=== PATIENT | female | born 1945 | race Caucasian/White ===

== ENCOUNTER 2021-01-02 00:46 | Inpatient (IN) | payer OTHER ==
[2021-01-02] MEDS ORDERED: ASPIRIN 81 MG CHEWABLE TABLETS PO ONE ×3 (00:55→04:16)
[2021-01-02] MEDS ORDERED: NITROGLYCERIN SUBLINGUAL 1/150 0.4 MG TAB ONE (00:58)
[2021-01-02] MEDS ORDERED: ASPIRIN 81 MG CHEWABLE TABLETS ONE (00:58)
[2021-01-02] MEDS ORDERED: NITROGLYCERIN SUBLINGUAL 1/150 0.4 MG TAB SL ONE (01:08)
[2021-01-02 01:45] LABS: BASO % 0.9 % (0-2.0); EOS % 0.9 % (0-4.5); HEMATOCRIT 37.2 % (32.4-45.2); HEMOGLOBIN 12.7 GM/dL (10.7-15.3); LYMPH % 26.6 % (8-40); MCH 29.2 pg (25.7-33.7); MCHC 34.3 g/dl (32.0-36.0); MEAN CELL VOLUME 85.1 fl (80-96); MEAN PLT VOLUME 8.3 fl (7.5-11.1); MONO % 8.5 % (3.8-10.2); NEUT % 63.1 % (42.8-82.8); PLATELET COUNT 202 K/MM3 (134-434); RBC 4.37 M/mm3 (3.60-5.2); RDW 13.9 % (11.6-15.6); URINE APPEARANCE CLEAR; URINE BILIRUBIN NEGATIVE (NEGATIVE); URINE COLOR YELLOW; URINE GLUCOSE (UA) NEGATIVE (NEGATIVE); URINE KETONE NEGATIVE (NEGATIVE); URINE LEUK ESTERASE NEGATIVE (NEGATIVE); URINE NITRITE NEGATIVE (NEGATIVE); URINE PROTEIN NEGATIVE (NEGATIVE); URINE UROBILINOGEN 0.2 mg/dL (0.2-1.0); WHITE BLOOD COUNT 5.2 K/mm3 (4.0-10.0)
[2021-01-02] MEDS ORDERED: ONDANSETRON 4 MG/2 ML VIAL IVPUSH ONE (01:53)
[2021-01-02 01:54] LABS: INR 0.95 (0.83-1.09); PROTHROMBIN TIME (PATIENT) 11.5 SEC (9.7-13.0)
[2021-01-02] MEDS ORDERED: ONDANSETRON 4 MG/2 ML VIAL ONE (01:54)
[2021-01-02 01:57] LABS: ACTIVATED PTT 29.4 SECONDS (25.2-36.5)
[2021-01-02 02:01] LABS: CHLORIDE 108 mmol/L (98-107); SODIUM 142 mmol/L (136-145)
[2021-01-02 02:04] LABS: ANION GAP 5 MMOL/L (8-16); BLOOD UREA NITROGEN 17.4 mg/dL (7-18); CALCIUM 9.1 mg/dL (8.5-10.1); CO2 30 mmol/L (21-32)
[2021-01-02 02:07] LABS: SGOT/AST 18 U/L (15-37)
[2021-01-02 02:08] LABS: SGPT/ALT 18 U/L (13-61)
[2021-01-02 02:09] LABS: BILIRUBIN,TOTAL 0.3 mg/dL (0.2-1); TOT PROT 6.8 g/dl (6.4-8.2)
[2021-01-02 02:10] LABS: ALK PHOS 84 U/L (45-117)
[2021-01-02 02:14] LABS: CREATININE 0.7 mg/dL (0.55-1.3); GLUCOSE,RANDOM 138 mg/dL (74-106)
[2021-01-02] MEDS ORDERED: NITROGLYCERIN SUBLINGUAL 1/150 0.4 MG TAB SL PRN (04:16)
[2021-01-02 05:51] VITALS: BMI 25.9
[2021-01-02 09:38] LABS: CALCIUM 9.1 mg/dl (8.5-10); CREATININE 0.7 mg/dl (0.55-1.3)
[2021-01-02] MEDS ORDERED: dilTIAZem HCL 30 MG TABLET PO SCH ×3 (10:00→18:00)
[2021-01-02] MEDS: ASPIRIN COATED 81 MG TABLET.EC PO SCH (10:19)
[2021-01-02] MEDS: MAGNESIUM OXIDE 400 MG TABLET (FP) PO SCH ×2 (10:19→22:27)
[2021-01-02] MEDS: VALSARTAN 40 MG TABLET PO SCH (15:17)
[2021-01-02] MEDS: metoPROLOL SUCCINATE 25 MG TAB.SR.24H (FP) PO SCH (15:17)
[2021-01-02] MEDS ORDERED: PT OWN MED DRAWER 7, Y5N ONE (17:15)
[2021-01-02] MEDS ORDERED: DILTIAZEM 90 MG PO SCH (18:00)
[2021-01-02] MEDS ORDERED: ATORVASTATIN CA 10 MG TABLET (FP) PO SCH (22:00)
[2021-01-03 09:13] VITALS: BP 120/51; PULSE 60; TEMP 98.2
[2021-01-03 09:14] LABS: ALBUMIN 3.5 g/dl (3.4-5.0); BILIRUBIN,TOTAL 0.3 mg/dl (0.2-1); CALCIUM 9.1 mg/dl (8.5-10); CREATININE 0.7 mg/dl (0.55-1.3); MAGNESIUM 1.7 mg/dL (1.8-2.4); TOT PROT 5.7 g/dl (6.4-8.2)
[2021-01-03] MEDS: MAGNESIUM OXIDE 400 MG TABLET (FP) PO SCH (09:20)
[2021-01-03] MEDS: VALSARTAN 40 MG TABLET PO SCH (09:20)
[2021-01-03] MEDS: ASPIRIN COATED 81 MG TABLET.EC PO SCH (09:20)
[2021-01-03] MEDS: metoPROLOL SUCCINATE 25 MG TAB.SR.24H (FP) PO SCH (09:20)
[2021-01-03 09:27] LABS: BASO % 1.3 % (0-2.0); EOS % 1.2 % (0-4.5); HEMOGLOBIN 11.4 GM/dl (10.7-15.3); LYMPH % 33.3 % (8-40); MCH 28.5 pg (25.7-33.7); MCHC 33.5 g/dl (32.0-36.0); MEAN CELL VOLUME 85.1 fl (80-96); MEAN PLT VOLUME 9.1 fl (7.5-11.1); MONO % 9.9 % (3.8-10.2); NEUT % 54.3 % (42.8-82.8); PLATELET COUNT 206 K/MM3 (134-434); RDW 12.8 % (11.6-15.6); WHITE BLOOD COUNT 4.9 K/mm3 (4.0-10.8)
== END 2021-01-03 12:30 | disposition home or self-care (01) | DRG 305 ==
LOC: FER 00:46 → FM/S 04:06
PROVIDERS: ADMIT Hospitalist; ATTEND Nurse Practitioner Acute Care
DX: I16.0 Hypertensive urgency (principal); R07.89 Other chest pain; I10 Essential (primary) hypertension; E78.5 Hyperlipidemia, unspecified; R01.1 Cardiac murmur, unspecified; I25.10 Atherosclerotic heart disease of native coronary artery without angina pectoris
CPT/HCPCS: 36415; 71045-TC-FY; 71275-TC; 80048; 80053; 81003; 82550; 83735; 83880; 84484; 85025; 85379; 85610; 85730; 86769; 93005; 93308; 93970; 99285-25; C9803; U0003; U0005

== ENCOUNTER 2022-05-12 10:30 | Observation (INO) | payer OTHER ==
[2022-05-12 10:47] VITALS: BMI 25.4
[2022-05-12 11:10] LABS: HEMATOCRIT 30.5 % (32.4-45.2); HEMOGLOBIN 10.9 G/dL (10.7-15.3); MCH 30.6 pg (25.7-33.7); MCHC 35.6 g/dl (32.0-36.0); MEAN CELL VOLUME 86.1 fl (80-96); MEAN PLT VOLUME 7.9 fl (7.5-11.1); PLATELET COUNT 178.2 10^3/uL (134-434); RBC 3.54 10^6/uL (3.60-5.2); RDW 14.2 % (11.6-15.6); WHITE BLOOD COUNT 5.2 10^3/uL (4.0-10.8)
[2022-05-12 11:17] LABS: INR 1.04 (0.83-1.09)
[2022-05-12 11:22] LABS: PLATELET ESTIMATE ADEQUATE
[2022-05-12 11:26] LABS: ALBUMIN 4.1 g/dl (3.4-5.0); BILIRUBIN,TOTAL 0.7 mg/dl (0.2-1); CALCIUM 9.5 mg/dl (8.5-10); TOT PROT 6.7 g/dl (6.4-8.2)
[2022-05-12] MEDS ORDERED: hydrALAZINE HCL 20 MG/ML VIAL IVPUSH ONE (13:41)
[2022-05-12 13:51] LABS: EPITHELIAL CELLS RARE /hpf
[2022-05-12] MEDS: CEFTRIAXONE 1 GM in DEXTROSE 5%-WATER - 50 ML IVPB SCH (16:59)
[2022-05-12] MEDS ORDERED: VALSARTAN 160 MG TABLET PO SCH ×3 (17:00→18:34)
[2022-05-12] MEDS ORDERED: ONDANSETRON 4 MG/2 ML VIAL IVPUSH PRN (18:33)
[2022-05-12] MEDS ORDERED: ACETAMINOPHEN 325 MG TABLET (FP) PO PRN (18:33)
[2022-05-12 20:17] VITALS: RESP 18
[2022-05-12] MEDS ORDERED: ATORVASTATIN CA 10 MG TABLET (FP) PO SCH (22:00)
[2022-05-13] MEDS: CEFTRIAXONE 1 GM in DEXTROSE 5%-WATER - 50 ML IVPB SCH (09:42)
[2022-05-13] MEDS ORDERED: VALSARTAN 160 MG TABLET PO SCH (10:00)
[2022-05-13] MEDS ORDERED: ENOXAPARIN NA (PORCINE) 40 MG/0.4 ML DISP.SYRIN SQ SCH (10:00)
[2022-05-13] MEDS ORDERED: NEBIVOLOL 2.5 MG TABLET (FP) PO SCH (10:00)
[2022-05-13 12:38] VITALS: BP 135/53; PULSE 58; TEMP 98.9
== END 2022-05-13 14:00 | disposition home or self-care (01) ==
LOC: FER 10:30 → FM/S 10:59 → FER 13:46 → FM/S 13:46 → FER 13:50 → FM/S 13:50 → UNDOADMOB 13:51 → FM/S 13:51
PROVIDERS: ADMIT Internal Medicine; ATTEND Internal Medicine
PROC: 3E033GC Introduction of Other Therapeutic Substance into Peripheral Vein, Percutaneous Approach (ICD-10-PCS; principal; 2022-05-12)
DX: I16.0 Hypertensive urgency (principal); R07.89 Other chest pain; R00.2 Palpitations; E78.5 Hyperlipidemia, unspecified; Z29.8 Encounter for other specified prophylactic measures; Z88.8 Allergy status to other drugs, medicaments and biological substances; J30.2 Other seasonal allergic rhinitis; Z88.0 Allergy status to penicillin
CPT/HCPCS: 36415; 71045-TC-FY; 80053; 81003; 81015; 82962; 84484; 85025; 85610; 85730; 86850; 86900; 86901; 87086; 93005; 93306-TC; 96374; 96375; 99285-25; C9803-CS; G0378; U0003; U0005